=== PATIENT | male | born 1935 | race Caucasian/White ===

== ENCOUNTER 2016-10-16 16:00 | Outpatient (CLI) | payer MEDICARE, OTHER | END 2016-10-16 16:01 | DX: L03.211 Cellulitis of face (principal) ==

== ENCOUNTER 2016-11-27 09:48 | Outpatient (CLI) | payer MEDICARE, OTHER | END 2016-11-27 09:49 | disposition home or self-care (01) | DX: L03.211 Cellulitis of face (principal) ==

== ENCOUNTER 2017-10-10 08:00 | Outpatient (CLI) | payer MEDICARE, OTHER | END 2017-10-10 08:01 | disposition home or self-care (01) | LOC: LAB.N 08:00 | PROVIDERS: ATTEND Urology | DX: R97.20 Elevated prostate specific antigen [PSA] (principal) | CPT/HCPCS: 36415; 84153 ==

== ENCOUNTER 2017-12-04 09:58 | Outpatient (CLI) | payer MEDICARE, OTHER ==
--- NOTE | 2017-12-04 12:03 | MRI Report ---
EXAM: MRI BRAIN WITHOUT CONTRAST EXAM DATE: 12/04/2017 11:21 AM. CLINICAL HISTORY: FOOT DROP, MUSCLE WEAKNESS. COMPARISON: None. TECHNIQUE: Multiplanar, multisequence T1-weighted and fluid-sensitive MR sequences of the brain were performed. Sequences optimized for routine evaluation. Other: None. IV Contrast: None. FINDINGS: Brain Volume: Normal for age. Parenchyma/Dura: No mass, acute infarct or hemorrhage. Scattered T2/FLAIR hyperintense periventricula r and deep white matter lesions within the cerebral hemispheres bilaterally. No parenchymal foci of susceptibility artifact. Ventricles/Cisterns: No hydrocephalus. No abnormal extra-axial fluid collection or hemorrhage. Orbits: Symmetric and unremarkable. Sella Turcica: The pituitary gland, cavernous sinuses, suprasellar cistern and optic chiasm are unrem arkable. IAC: Symmetric and unremarkable. Vasculature: Normal signal flow void is seen in the major arterial structures at the skull base. Sinuses: Mild pansinus mucosal thickening. Bones: No focal pathologic appearing marrow signal changes. Other: None. IMPRESSION: 1. No MRI evidence of acute intracranial abnormality. Specifically, no evidence of acute or subacute infarct, acute intracranial hemorrhage, mass, midline shift, or hydrocephalus. 2. Scattered T2/FLAIR hyperintense periventricular and deep white matter lesions within the cerebral hemispheres bilaterally. These lesions are nonspecific, and can be seen with the entire gamut of whit e matter conditions, including migraine headaches and as sequela of chronic microangiopathy. [facility] Referring Provider Line: [phone] SITE ID: [id number]
== END 2017-12-04 09:59 | disposition home or self-care (01) ==
LOC: DI 09:58
PROVIDERS: ATTEND Family Medicine
DX: M21.379 Foot drop, unspecified foot (principal); M62.81 Muscle weakness (generalized); Q07.8 Other specified congenital malformations of nervous system; G56.12 Other lesions of median nerve, left upper limb
CPT/HCPCS: 70551

== ENCOUNTER 2019-01-25 14:36 | Emergency (ER) | payer MEDICARE, OTHER ==
[2019-01-25 14:47] VITALS: BP 145/78
[2019-01-25] MEDS ORDERED: PROPARACAINE 0.5% OPHTH DROPS 15 ML EACHEYE STA (15:15)
--- NOTE | 2019-01-25 15:37 | ED Physician Documentation ---
PD HPI OPHTHO - Stated complaint Stated Complaint: POSS DEBRIS R EYE - Chief complaint Chief Complaint: Heent - History obtained from History obtained from: Patient - History of Present Illness Timing - onset: How many hours ago (2) Timing - duration: Hours (2) Timing - details: Abrupt onset Pain level max: 2 Pain level now: 1 Location: Right Quality / character: Aching Associated symptoms: Other (states a flying insect hit him in the eye) Contributing factors: Blunt trauma, Wears glasses. No: Wears contacts Similar symptoms before: Has not had sx before Recently seen: Not recently seen Review of Systems Constitutional: denies: Fever Eyes: denies: Decreased vision, Photophobia PD PAST MEDICAL HISTORY - Past Medical History Past Medical History: Yes Cardiovascular: None Respiratory: None GI: None : Benign prostate hypertrophy, Kidney stones HEENT: None Psych: None Musculoskeletal: None Derm: None - Past Surgical History Past Surgical History: Yes Ortho: Hip replacement - Present Medications Home Medications: Ambulatory Orders Medication Instructions Recorded Confirmed Tamsulosin [Flomax] 0.4 mg PO DAILY 09/21/13 08/07/16 - Allergies Allergies/Adverse Reactions: Allergies Allergy/AdvReac Type Severity Reaction Status Date / Time No Known Drug Allergies Allergy Verified 01/25/19 14:42 - Social History Does the pt smoke?: No Smoking Status: Never smoker Does the pt drink ETOH?: Yes Does the pt have substance abuse?: No - Immunizations Immunizations are current?: Yes - POLST Patient has POLST: Yes POLST Status: Full Code PD ED PE NORMAL - Vitals Vital signs reviewed: Yes - General General: Alert and oriented X 3, No acute distress - HEENT HEENT: Moist mucous membranes, Other (Normal examination of the right eye. No conjunctival injection, but there is a small subconjunctival hemorrhage on the medial inferior portion of the eye. No foreign body noted. Normal fluorescein uptake) - Neck Neck: Supple, no meningeal sign - Derm Derm: Warm and dry Results - Vitals Vitals: Vital Signs - 24 hr 01/25/19 14:41 Temperature 36.7 C Heart Rate 91 Respiratory 18 Rate Blood Pressure 145/78 H O2 Saturation 97 Oxygen O2 Source Room air PD MEDICAL DECISION MAKING - ED course Complexity details: considered differential, d/w patient ED course: No foreign body seen. Small subconjunctival hemorrhage. No fluorescein uptake. No corneal abrasion. Patient counseled regarding signs and symptoms for which I believe and urgent re-evaluation would be necessary. Patient with good understanding of and agreement to plan and is comfortable going home at this time This document was made in part using voice recognition software. While efforts are made to proofread this document, sound alike and grammatical errors may occur. Departure - Departure Disposition: 01 Home, Self Care Clinical Impression: Eye foreign body Qualifiers: Encounter type: initial encounter Laterality: right Qualified Code(s): T15.91XA - Foreign body on external eye, part unspecified, right eye, initial encounter Subconjunctival hemorrhage Qualifiers: Laterality: right Qualified Code(s): H11.31 - Conjunctival hemorrhage, right eye Condition: Good Instructions: ED Eye Injury Subconj Hemorrhage Follow-Up: Serafin Morejon MD [Primary Care Provider] - As Needed Comments: Return if you worsen. Follow-up with your doctor as needed for further care. Discharge Date/Time: 01/25/19 16:11
== END 2019-01-25 16:11 | disposition home or self-care (01) ==
LOC: ED 14:36
DX: T15.91XA Foreign body on external eye, part unspecified, right eye, initial encounter (principal); H11.31 Conjunctival hemorrhage, right eye; X58.XXXA Exposure to other specified factors, initial encounter
CPT/HCPCS: 99282; J3490

== ENCOUNTER 2019-08-26 14:01 | Outpatient (CLI) | payer MEDICARE, OTHER | END 2019-08-26 14:02 | disposition critical access hospital (66) | LOC: EMS 14:01 | PROVIDERS: ATTEND Surgery | DX: R10.9 Unspecified abdominal pain (principal); R19.7 Diarrhea, unspecified | CPT/HCPCS: A0425; A0429 ==

== ENCOUNTER 2019-08-26 14:34 | Emergency (ER) | payer MEDICARE, OTHER ==
--- NOTE | 2019-08-26 15:31 | ED Physician Documentation ---
PD HPI ABD PAIN - Stated complaint Stated Complaint: ABD PX - Chief complaint Chief Complaint: Abd Pain - History obtained from History obtained from: Patient, Family, EMS - History of Present Illness Timing - onset: Today (This is a pretty healthy 84-year-old gentleman who developed what sound like a fecal impaction this morning. He feels like there is a lot of pressure in his rectum and cannot have a bowel movement. Has had some little smear like incontinent bowel movements but nothing really productive. Denies abdominal pain. Does feel like he has some urinary retention.) Review of Systems Constitutional: reports: Reviewed and negative Throat: reports: Reviewed and negative Cardiac: reports: Reviewed and negative Respiratory: reports: Reviewed and negative PD PAST MEDICAL HISTORY - Past Medical History Past Medical History: Yes Cardiovascular: None Respiratory: None Neuro: Other GI: None : Benign prostate hypertrophy, Kidney stones HEENT: None Psych: None Musculoskeletal: None Derm: None Other Past Medical History: "nerve difficulties" from [employer] [place] - Past Surgical History Past Surgical History: Yes Ortho: Hip replacement - Present Medications Home Medications: Ambulatory Orders Medication Instructions Recorded Confirmed No Known Home Medications 08/26/19 08/26/19 - Allergies Allergies/Adverse Reactions: Allergies Allergy/AdvReac Type Severity Reaction Status Date / Time No Known Drug Allergies Allergy Verified 08/26/19 14:53 - Social History Does the pt smoke?: No Smoking Status: Never smoker Does the pt drink ETOH?: Yes Does the pt have substance abuse?: No - Immunizations Immunizations are current?: Yes - POLST Patient has POLST: Yes POLST Status: Full Code PD ED PE NORMAL - Vitals Vital signs reviewed: Yes - General General: Alert and oriented X 3, No acute distress - Abdomen Abdomen: Normal bowel sounds, Soft, Non tender - Rectal Rectal: Other (He is popped out some external hemorrhoids, skin raw down there, on internal examination he does have fecal impaction. First enema was placed during exam.) - Back Back: No CVA TTP, No spinal TTP - Extremities Extremities: No edema, No calf tenderness / cord - Neuro Neuro: Alert and oriented X 3, Normal speech Results - Vitals Vitals: Vital Signs - 24 hr 08/26/19 14:36 Temperature 36.6 C Heart Rate 90 Respiratory 18 Rate Blood Pressure 175/85 H O2 Saturation 97 Oxygen O2 Source Room air PD MEDICAL DECISION MAKING - ED course ED course: 84-year-old gentleman presents with a fecal impaction, after an enema he had a large bowel movement and was feeling better. Departure - Departure Disposition: 01 Home, Self Care Clinical Impression: Fecal impaction Condition: Good Record reviewed to determine appropriate education?: Yes Instructions: ED Impaction Fecal Treated Comments: Your blood pressure was elevated today on check into the emergency department. This does not mean that you have hypertension, it is a common phenomenon to come to the emergency department and have elevated blood pressure. I recommend that you see your primary care physician within the week to have it rechecked when you are feeling better.
[2019-08-26] MEDS ORDERED: MAGNESIUM CITRATE 296 ML BOTTLE PO STA (15:57)
[2019-08-26 16:14] VITALS: BP 133/77
== END 2019-08-26 16:31 | disposition home or self-care (01) ==
LOC: EDUNIT# → ED 14:34
DX: K56.41 Fecal impaction (principal); K64.4 Residual hemorrhoidal skin tags; R33.9 Retention of urine, unspecified; R03.0 Elevated blood-pressure reading, without diagnosis of hypertension
CPT/HCPCS: 51798; 99283; A9270

== ENCOUNTER 2019-08-28 11:24 | Emergency (ER) | payer MEDICARE, OTHER ==
[2019-08-28] MEDS ORDERED: MINERAL OIL ENEMA 133 ML BOTTLE RC STA (12:10)
[2019-08-28] MEDS ORDERED: MAGNESIUM CITRATE 296 ML BOTTLE PO STA (12:45)
--- NOTE | 2019-08-28 12:48 | ED Physician Documentation ---
History of Present Illness - Stated complaint Stated Complaint: CONSTIPATION - Chief complaint Chief Complaint: Abd Pain - History obtained from History obtained from: Patient, Family - History of Present Illness Timing: How many days ago (4) Pain level max: 1 Pain level now: 1 - Additonal information Additional information: 84-year-old male presents to the emergency department with constipation for the past 4 days. He was given an enema 2 days ago. He was tried magnesium citrate, but did not take this because he did not want to have diarrhea at home and was afraid he would not be able to make it to the bathroom in time. He states that he still feels constipated so came back for evaluation. No fevers. No vomiting. Review of Systems Constitutional: denies: Fever, Chills Respiratory: denies: Cough GI: denies: Hematemesis, Bloody / black stool : denies: Dysuria Skin: denies: Rash Musculoskeletal: denies: Neck pain, Back pain Neurologic: denies: Headache PD PAST MEDICAL HISTORY - Past Medical History Past Medical History: Yes Cardiovascular: None Respiratory: None Neuro: Other GI: None : Benign prostate hypertrophy, Kidney stones HEENT: None Psych: None Musculoskeletal: None Derm: None - Past Surgical History Past Surgical History: Yes Ortho: Hip replacement - Present Medications Home Medications: Ambulatory Orders Medication Instructions Recorded Confirmed Polyethylene Glycol 3350 [Miralax] 17 gm PO DAILY PRN #1 bottle 08/28/19 - Allergies Allergies/Adverse Reactions: Allergies Allergy/AdvReac Type Severity Reaction Status Date / Time No Known Drug Allergies Allergy Verified 08/26/19 14:53 - Social History Does the pt smoke?: No Smoking Status: Never smoker Does the pt drink ETOH?: Yes Does the pt have substance abuse?: No - Immunizations Immunizations are current?: Yes - POLST Patient has POLST: Yes POLST Status: Full Code PD ED PE NORMAL - Vitals Vital signs reviewed: Yes - General General: Alert and oriented X 3, No acute distress - HEENT HEENT: Moist mucous membranes - Neck Neck: Supple, no meningeal sign - Cardiac Cardiac: RRR, Strong equal pulses - Respiratory Respiratory: No respiratory distress, Clear bilaterally - Abdomen Abdomen: Normal bowel sounds, Soft, Non tender, Non distended - Derm Derm: Warm and dry - Neuro Neuro: Alert and oriented X 3 - Psych Psych: Normal mood, Normal affect Results - Vitals Vitals: Vital Signs - 24 hr 08/28/19 08/28/19 08/28/19 11:29 11:32 14:32 Temperature 36.5 C 36.7 C Heart Rate 96 96 88 Respiratory 18 18 16 Rate Blood Pressure 169/83 H 169/83 H 154/74 H O2 Saturation 99 99 99 Oxygen O2 Source Room air PD MEDICAL DECISION MAKING - ED course Complexity details: re-evaluated patient, considered differential, d/w patient, d/w family ED course: Patient given magnesium citrate and an enema here. Had a good bowel movement. We will place him on MiraLAX for home. No evidence of obstruction or volvulus. Patient is well-appearing, nontoxic. Tolerating p.o. without difficulty. Patient counseled regarding signs and symptoms for which I believe and urgent re-evaluation would be necessary. Patient with good understanding of and agreement to plan and is comfortable going home at this time This document was made in part using voice recognition software. While efforts are made to proofread this document, sound alike and grammatical errors may oc cur. Departure - Departure Disposition: 01 Home, Self Care Clinical Impression: Constipation Qualifiers: Constipation type: unspecified constipation type Qualified Code(s): K59.00 - Constipation, unspecified Condition: Good Instructions: ED Constipation Follow-Up: Serafin Morejon MD [Primary Care Provider] - Within 1 week Prescriptions: Polyethylene Glycol 3350 [Miralax] 17 gm PO DAILY PRN #1 bottle PRN Reason: Constipation Comments: Drink plenty of water at home. Return if you worsen. Especially if you have vomiting. Follow-up with your doctor for further care. Discharge Date/Time: 08/28/19 14:41
[2019-08-28 14:33] VITALS: BP 154/74
== END 2019-08-28 14:41 | disposition home or self-care (01) ==
LOC: ED 11:24
DX: K59.00 Constipation, unspecified (principal)
CPT/HCPCS: 99282; 99284; A9270

== ENCOUNTER 2019-08-31 19:40 | Outpatient (CLI) | payer MEDICARE, OTHER ==
--- NOTE | 2019-08-31 20:18 | Ultrasound Report ---
Reason: HX OF BPH, INCONTINENCE, RETENTION Procedure Date: 08/31/2019 Accession Number: [id number] / [id number] Procedure: US - Bladder CPT Code: Final Report FULL RESULT: EXAM: PELVIS ULTRASOUND, LIMITED EXAM DATE: 08/31/2019 08:03 PM. CLINICAL HISTORY: History of BPH, incontinence, urinary retention. COMPARISON: ABDOMEN/PELVIS W/ 08/07/2016 4:18 AM. TECHNIQUE: Real-time scanning was performed with static images obtained. FINDINGS: The bladder is markedly distended with anechoic fluid measuring 15.7 x 13.1 x 14.2 cm (1520 cc). The bladder was also moderately distended on prior CT. No wall thickening, mass or debris evident. No calculi visualized. Patient was unable to void during this exam. The kidneys were not imaged on this limited study. The prostate gland measures 5.8 x 4.7 cm, moderately enlarged. IMPRESSION: Markedly distended bladder and moderately enlarged prostate gland may represent a high-grade bladder outlet obstruction. Patient was unable to void during this exam. It was suggested to the patient that visiting the emergency room following the exam for decompression may be helpful. [facility]
== END 2019-08-31 19:41 | disposition home or self-care (01) ==
LOC: DI 19:40
PROVIDERS: ATTEND Family Medicine
DX: N40.1 Benign prostatic hyperplasia with lower urinary tract symptoms (principal); N39.3 Stress incontinence (female) (male); N32.89 Other specified disorders of bladder
CPT/HCPCS: 76857

== ENCOUNTER 2019-08-31 20:19 | Emergency (ER) | payer MEDICARE, OTHER ==
[2019-08-31] MEDS ORDERED: TAMSULOSIN 0.4 MG CAPSULE PO STA (21:50)
[2019-08-31] MEDS ORDERED: LIDOCAINE 2% URO-JET 5 ML SYRINGE UR STA (21:50)
--- NOTE | 2019-08-31 21:51 | ED Physician Documentation ---
History of Present Illness - Stated complaint Stated Complaint: MALE - Chief complaint Chief Complaint: General - History obtained from History obtained from: Patient - History of Present Illness Timing: Today (4-year-old gentleman who we have seen recently for fecal impaction. He had a TURP 3 years ago, not currently on Flomax. After the disimpaction he subsequently still had some trouble with on and off bowel movements but also with urinary dribbling, and was seen by his primary care physician. No urine was obtained but he was put on antibiotics "just in case." And sent for an ultrasound. He was referred here from ultrasound because of prostatic hypertrophy and 152 0 mL in the bladder.) Review of Systems Constitutional: denies: Fever, Chills Respiratory: denies: Dyspnea, Cough GI: denies: Abdominal Pain, Nausea, Vomiting PD PAST MEDICAL HISTORY - Past Medical History Cardiovascular: None Respiratory: None Neuro: Other GI: None : Benign prostate hypertrophy, Retention, Incontinence HEENT: None Psych: None Musculoskeletal: None Derm: None - Past Surgical History Past Surgical History: Yes Ortho: Hip replacement - Present Medications Home Medications: Ambulatory Orders Medication Instructions Recorded Confirmed Polyethylene Glycol 3350 [Miralax] 17 gm PO DAILY PRN #1 bottle 08/28/19 Tamsulosin [Flomax] 0.4 mg PO DAILY #30 capsule 08/31/19 - Allergies Allergies/Adverse Reactions: Allergies Allergy/AdvReac Type Severity Reaction Status Date / Time No Known Drug Allergies Allergy Verified 08/26/19 14:53 - Social History Does the pt smoke?: No Smoking Status: Never smoker Does the pt drink ETOH?: Yes Does the pt have substance abuse?: No - Immunizations Immunizations are current?: Yes - POLST Patient has POLST: Yes POLST Status: Full Code PD ED PE NORMAL - Vitals Vital signs reviewed: Yes - General General: Alert and oriented X 3, No acute distress - Respiratory Respiratory: No respiratory distress - Abdomen Abdomen: Normal bowel sounds, Soft, Non tender - Extremities Extremities: No edema, No calf tenderness / cord - Neuro Neuro: Alert and oriented X 3, Normal speech Results - Vitals Vitals: Vital Signs - 24 hr 08/31/19 20:26 Temperature 36.9 C Heart Rate 97 Respiratory 18 Rate Blood Pressure 149/66 H O2 Saturation 98 Oxygen O2 Source Room air - Labs Labs: Laboratory Tests 08/31/19 08/31/19 23:03 23:03 WBC 12.3 H RBC 4.78 Hgb 14.4 Hct 43.1 MCV 90.2 MCH 30.1 MCHC 33.4 RDW 13.1 Plt Count 214 MPV 11.0 Neut # (Auto) 10.3 H Lymph # (Auto) 0.9 L [place] # (Auto) 0.9 Eos # (Auto) 0.1 Baso # (Auto) 0.0 Absolute Nucleated RBC 0.00 Nucleated RBC % 0.0 Sodium 139 Potassium 4.0 Chloride 102 Carbon Dioxide 28 Anion Gap 9.0 BUN 15 Creatinine 0.9 Estimated GFR (MDRD) 81 L Glucose 117 H Calcium 10.0 - Rads (name of study) 1v abd Radiology: EMP read contemporaneously (no excessive stool) Procedures - General procedure General procedure: I tried several times to place a Wilson this was after the nurse tried and failed. I tried both with a coud and a regular catheter. I was unsuccessful. PD MEDICAL DECISION MAKING - ED course ED course: 84-year-old gentleman with history of prostatic hypertrophy, several years out from a TURP procedure presents with urinary retention as an outpatient, 1520 mL in the bladder, that said he is in no distress and really has no sensation of an acute urinary. I and the nurse tried and failed to place a Wilson. He was given Flomax. At shift change I had spoken with Dr. Smith on-call for Dr. Santana who felt that this was likely a chronic phenomenon given the lack of distress or pain and could be dealt with as an outpatient. I asked Dr. Marte to follow-up on his x-ray and blood work. If they are normal he can be discharged on Flomax which I will write for to call Dr. Santana in 2 days. Departure - Departure Disposition: 01 Home, Self Care Clinical Impression: Urinary retention with incomplete bladder emptying Condition: Good Record reviewed to determine appropriate education?: Yes Follow-Up: Monique Way MD [Physician No Access] - Prescriptions: Tamsulosin [Flomax] 0.4 mg PO DAILY #30 capsule Comments: The [facility] number for the urology office is [phone]. Return for new or worsening symptoms.
[2019-08-31 23:07] LABS: BASOPHILS % (AUTO) 0.3 %; EOSINOPHILS # (AUTO) 0.1 10^3/uL (0.0-0.7); EOSINOPHILS % (AUTO) 1.1 %; HGB - HEMOGLOBIN 14.4 g/dL (14.0-18.0); LYMPHOCYTES # (AUTO) 0.9 10^3/uL (1.5-3.5); LYMPHOCYTES % (AUTO) 7.2 %; MEAN CORPUSCULAR HEMOGLOBIN 30.1 pg (27.0-31.0); MEAN CORPUSCULAR HGB CONC 33.4 g/dL (32.0-36.0); MEAN CORPUSCULAR VOLUME 90.2 fL (80.0-94.0); MONOCYTES # (AUTO) 0.9 10^3/uL (0.0-1.0); NEUTROPHILS # (AUTO) 10.3 10^3/uL (1.5-6.6); PLT - PLATELET COUNT 214 10^3/uL (130-450); RED BLOOD COUNT 4.78 10^6/uL (4.70-6.10); RED CELL DISTRIBUTION WIDTH 13.1 % (12.0-15.0); WHITE BLOOD COUNT 12.3 x10^3/uL (4.8-10.8)
--- NOTE | 2019-08-31 23:07 | XRAY Report ---
Reason: constipation Procedure Date: 08/31/2019 Accession Number: [id number] / [id number] Procedure: XR - Abdomen 1 View X-Ray CPT Code: 88745 Final Report FULL RESULT: EXAM: ABDOMEN RADIOGRAPHY EXAM DATE: 08/31/2019 10:45 PM. CLINICAL HISTORY: Constipation. COMPARISON: ABDOMEN/PELVIS W/ 08/07/2016 4:18 AM. TECHNIQUE: 1 view. FINDINGS: Bowel Gas Pattern: Within normal limits. No dilated loops. Other: Previous right hip replacement. IMPRESSION: Negative 1-view abdomen x-ray. No excessive stool burden seen by plain film. [facility]
[2019-08-31 23:16] LABS: CREATININE 0.9 mg/dL (0.6-1.2)
[2019-08-31 23:56] VITALS: BP 144/72
== END 2019-08-31 23:54 | disposition home or self-care (01) ==
LOC: ED 20:19
DX: N40.1 Benign prostatic hyperplasia with lower urinary tract symptoms (principal); R33.8 Other retention of urine; R39.14 Feeling of incomplete bladder emptying; N39.3 Stress incontinence (female) (male); N32.89 Other specified disorders of bladder
CPT/HCPCS: 36415; 51702; 74018; 76857; 80048; 85025; 99283; A9270

== ENCOUNTER 2020-08-22 12:51 | Outpatient (CLI) | payer MEDICARE, OTHER ==
--- NOTE | 2020-08-22 13:30 | XRAY Report ---
PROCEDURE: Wrist 3 View RT INDICATIONS: RIGHT WRIST PAIN TECHNIQUE: 3 views of the wrist were acquired. COMPARISON: None FINDINGS: Bones: There is a comminuted fracture with impaction as well as intra-articular extension of the dist al radius. There is mild dorsal angulation. Mildly displaced ulna styloid fracture is present. No philipp picious bony lesions. Soft tissues: No suspicious soft tissue calcifications. IMPRESSION: Comminuted distal radial intra-articular fracture. In addition, ulnar styloid fracture is present. Reviewed by: Josefina Cardozo MD on 08/22/2020 1:29 PM [facility] Approved by: Josefina Cardozo MD on 08/22/2020 1:29 PM PST Station ID: [id number]
--- NOTE | 2020-08-22 16:13 | XRAY Report ---
PROCEDURE: Ankle 3 View LT INDICATIONS: LEFT ANKLE PAIN AFTER FALL TECHNIQUE: 3 views of the ankle were acquired. COMPARISON: None FINDINGS: Bones: No fractures or dislocations. Ankle mortise is normally aligned. No suspicious bony lesions . Soft tissues: No tibiotalar joint effusion. Achilles tendon appears normal. IMPRESSION: No visualized acute fracture or dislocation. However, occult injury cannot be excluded. Recommend short interval imaging follow-up in 7-10 days as clinically indicated for additional evalua tion. Reviewed by: Josefina Cardozo MD on 08/22/2020 4:12 PM [facility] Approved by: Josefina Cardozo MD on 08/22/2020 4:12 PM [facility] Station ID: [id number]
== END 2020-08-22 12:52 | disposition home or self-care (01) ==
LOC: DI.N 12:51
DX: S52.571A Other intraarticular fracture of lower end of right radius, initial encounter for closed fracture (principal); S52.611A Displaced fracture of right ulna styloid process, initial encounter for closed fracture; M25.572 Pain in left ankle and joints of left foot

== ENCOUNTER 2020-10-02 14:50 | Outpatient (CLI) | payer MEDICARE, OTHER ==
--- NOTE | 2020-10-02 12:26 | XRAY Report ---
PROCEDURE: Wrist 3 View RT INDICATIONS: COLLES FX OF R RAD[facility] TECHNIQUE: 3 views of the wrist were acquired. COMPARISON: Acute trauma plain films 08/22/2020 right wrist. FINDINGS: Bones: No new fractures or dislocations. No suspicious bony lesions. Scaphoid view: Not obtained. Soft tissues: No suspicious soft tissue calcifications. IMPRESSION: No change in the degree of malalignment and dorsal angulation with impaction at the distal radius and ulna fractures. Blurring of fracture margins, osseous union appears developing. Reviewed by: Edwar Barnard MD on 10/02/2020 12:25 PM PST Approved by: Edwar Barnard MD on 10/02/2020 12:25 PM PST Station ID: [id number]
== END 2020-10-02 23:59 | disposition home or self-care (01) ==
LOC: DI.N 14:50
PROVIDERS: ATTEND Orthopaedic Surgery
DX: S52.501D Unspecified fracture of the lower end of right radius, subsequent encounter for closed fracture with routine healing (principal); S52.601D Unspecified fracture of lower end of right ulna, subsequent encounter for closed fracture with routine healing

== ENCOUNTER 2021-04-23 13:38 | Emergency (ER) | payer MEDICARE, OTHER ==
[2021-04-23 14:13] VITALS: BP 183/96
[2021-04-23 14:30] LABS: BASOPHILS % (AUTO) 0.3 %; EOSINOPHILS % (AUTO) 0.1 %; HCT - HEMATOCRIT 46.5 % (42.0-52.0); LYMPHOCYTES # (AUTO) 0.5 10^3/uL (1.5-3.5); LYMPHOCYTES % (AUTO) 4.6 %; MEAN CORPUSCULAR HEMOGLOBIN 30.5 pg (27.0-31.0); MEAN CORPUSCULAR HGB CONC 34.4 g/dL (32.0-36.0); MEAN CORPUSCULAR VOLUME 88.7 fL (80.0-94.0); MEAN PLATELET VOLUME 10.5 fL (7.4-11.4); MONOCYTES # (AUTO) 0.3 10^3/uL (0.0-1.0); NEUTROPHILS # (AUTO) 8.9 10^3/uL (1.5-6.6); NEUTROPHILS % (AUTO) 91.8 %; PLT - PLATELET COUNT 223 10^3/uL (130-450); RED BLOOD COUNT 5.24 10^6/uL (4.70-6.10); RED CELL DISTRIBUTION WIDTH 12.8 % (12.0-15.0); WHITE BLOOD COUNT 9.7 x10^3/uL (4.8-10.8)
[2021-04-23 14:46] LABS: ALBUMIN 4.8 g/dL (3.2-5.5); ALBUMIN/GLOBULIN RATIO 1.7 (1.0-2.2); BILIRUBIN,TOTAL 0.9 mg/dL (0.2-1.0); CALCIUM 10.9 mg/dL (8.5-10.3); POTASSIUM 4.4 mmol/L (3.5-5.0); TOTAL PROTEIN 7.7 g/dL (6.7-8.2)
--- NOTE | 2021-04-23 15:11 | ED Physician Documentation ---
PD HPI ABD PAIN - Stated complaint Stated Complaint: MALE - Chief complaint Chief Complaint: Abd Pain - History obtained from History obtained from: Patient - Additional information Additional information: He was working heavily in the yard yesterday, pitch working heavy loads of branches. Overnight developed a "gut ache." And went to the walk-in clinic and was sent here for I presume imaging. Denies changes in bowel movements or nausea. Review of Systems Ten Systems: 10 systems reviewed and negative Eyes: reports: Reviewed and negative Ears: reports: Reviewed and negative Nose: reports: Reviewed and negative Throat: reports: Reviewed and negative Cardiac: reports: Reviewed and negative PD PAST MEDICAL HISTORY - Past Medical History Cardiovascular: None Respiratory: None Neuro: Other GI: None : Benign prostate hypertrophy, Retention, Incontinence HEENT: None Psych: None Musculoskeletal: None Derm: None - Past Surgical History Past Surgical History: Yes Ortho: Hip replacement - Present Medications Home Medications: Ambulatory Orders Medication Instructions Recorded Confirmed polyethylene glycoL 3350 [Miralax] 17 gm PO DAILY PRN #1 bottle 08/28/19 Tamsulosin [Flomax] 0.4 mg PO DAILY #30 capsule 08/31/19 04/23/21 Finasteride [Proscar] 1 tab PO DAILY 04/23/21 04/23/21 HYDROcod/ACETAM 5/325 [[place] 5/325] 1 - 2 tab PO Q6H PRN #20 tablet 04/23/21 - Allergies Allergies/Adverse Reactions: Allergies Allergy/AdvReac Type Severity Reaction Status Date / Time No Known Drug Allergies Allergy Verified 04/23/21 14:13 - Social History Does the pt smoke?: No Smoking Status: Never smoker Does the pt drink ETOH?: Yes Does the pt have substance abuse?: No - Immunizations Immunizations are current?: Yes - POLST Patient has POLST: Yes POLST Status: Full Code PD ED PE NORMAL - Vitals Vital signs reviewed: Yes - General General: Alert and oriented X 3 (Mild memory deficits), No acute distress - HEENT HEENT: PERRL, EOMI - Neck Neck: Supple, no meningeal sign, No bony TTP - Cardiac Cardiac: RRR, No murmur - Respiratory Respiratory: No respiratory distress, Clear bilaterally - Abdomen Abdomen: Other (There is a potential right inguinal hernia defect, that said it is not incarcerated or tender. There is no bowel in it. Mild lower abdominal tenderness that is difficult to localize. No surgical signs.) - Back Back: No CVA TTP, No spinal TTP - Derm Derm: Normal color - Extremities Extremities: No edema, No calf tenderness / cord Results - Vitals Vitals: Vital Signs - 24 hr 04/23/21 04/23/21 13:56 14:10 Temperature 36.4 C L 36.4 C L Heart Rate 92 93 Respiratory 18 16 Rate Blood Pressure 186/97 H 183/96 H O2 Saturation 99 100 Oxygen O2 Source Room air - Labs Labs: Laboratory Tests 04/23/21 04/23/21 04/23/21 14:25 14:25 16:12 WBC 9.7 RBC 5.24 Hgb 16.0 Hct 46.5 MCV 88.7 MCH 30.5 MCHC 34.4 RDW 12.8 Plt Count 223 MPV 10.5 Neut # (Auto) 8.9 H Lymph # (Auto) 0.5 L [place] # (Auto) 0.3 Eos # (Auto) 0.0 Baso # (Auto) 0.0 Absolute Nucleated RBC 0.00 Nucleated RBC % 0.0 Sodium 142 Potassium 4.4 Chloride 105 Carbon Dioxide 28 Anion Gap 9.0 BUN 17 Creatinine 1.0 Estimated GFR (MDRD) 71 L Glucose 135 H Calcium 10.9 H Total Bilirubin 0.9 AST 18 ALT 18 Alkaline Phosphatase 74 Total Protein 7.7 Albumin 4.8 Globulin 2.9 Albumin/Globulin Ratio 1.7 Lipase 28 Urine Color YELLOW Urine Clarity CLEAR Urine pH 6.0 Ur Specific [place] 1.025 Urine Protein NEGATIVE Urine Glucose (UA) NEGATIVE Urine Ketones 40 H Urine Occult Blood MODERATE H Urine Nitrite NEGATIVE Urine Bilirubin NEGATIVE Urine Urobilinogen 0.2 (NORMAL) Ur Leukocyte Esterase NEGATIVE Urine RBC 6-10 H Urine WBC 0-3 Ur Squamous Epith Cells FEW Squamous Urine Bacteria Rare Urine Casts 0-2 Hyaline Casts Urine Mucus Few Strands Ur Microscopic Review INDICATED Urine Culture Comments NOT INDICATED - Rads (name of study) CT A/P Radiology: EMP read contemporaneously PD MEDICAL DECISION MAKING - ED course ED course: 86-year-old gentleman had severe abdominal pain this morning, less now. Work-up demonstrates a 5 mm UPJ stone, he is already on Flomax and is encouraged to continue this and they are actually seeing his urologist this week. He is given a CD of the CAT scan. He did not require any pain medication here. I am prescribing a short course of short-acting opioid pain medication for this patient. I have reviewed the patients [employer] and no concerning findings were noted. I have discussed that the opioids are for short term therapy only, and will not be refilled from the ED. Departure - Departure Disposition: Home, Self Care Clinical Impression: Renal colic Condition: Good Record reviewed to determine appropriate education?: Yes Instructions: ED Stone Renal W Colic Prescriptions: HYDROcod/ACETAM 5/325 [[place] 5/325] 1 - 2 tab PO Q6H PRN #20 tablet PRN Reason: Pain Comments: Follow-up with your urologist this Friday as scheduled, take the copy of the CAT scan on CD with you. He has a 5 mm kidney stone which may pass on its own, but there is also a possibility that it may need to be removed. I sent the prescription electronically to [facility] in [place]. Return for new or worsening symptoms or if pain is uncontrolled. I am prescribing a short course of narcotic pain medication for you. These are potentially dangerous and addictive medications that should be used carefully. These medications may constipate you. Take an [id number] stool softener (docusate) twice daily with plenty of water while taking these medications. If you go 24 hours without a bowel movement, take [id number] miralax, per package instructions. Do not drink or drive while taking these medications. If you received narcotic or sedating medications while in the emergency department, do not drive for 24 hours. Store this medication in a safe, secure place and out of reach of children. It is a violation of federal law to give or sell this medication to another person or to use in a manner other than prescribed. The ED will not refill narcotic prescriptions, including prescriptions lost or stolen. To dispose of unwanted medications: 1. [facility] at [address] in [place] has a medication drop box. They accept prescription medications (in pill form) Friday through Friday 9:00 a.m. to 5:00 p.m. 2. The [facility] [employer] accepts prescription medications (in pill form only) for disposal year round. Call for more information. 3. Contact the [facility] for the next [facility] sponsored prescription drug collection event. , [phone], or [phone]; Note that many narcotic pain relievers also contain Tylenol/acetaminophen. Please ensure that your total dose of acetaminophen from all sources does not exceed 3 g (3000 mg) per day.
[2021-04-23] MEDS ORDERED: IOPAMIDOL-300 50 ML VIAL ONE (15:44)
[2021-04-23 16:33] LABS: BILIRUBIN,URINE NEGATIVE (NEGATIVE); GLUCOSE, URINE (UA) NEGATIVE (NEGATIVE); KETONES,URINE (UA) 40 mg/dL (NEGATIVE); LEUKOCYTE ESTERASE, URINE NEGATIVE (NEGATIVE); NITRITE,URINE NEGATIVE (NEGATIVE); OCCULT BLOOD,URINE MODERATE (NEGATIVE); PROTEIN,URINE NEGATIVE (NEGATIVE); UROBILINOGEN,URINE 0.2 (NORMAL) E.U./dL (NORMAL)
[2021-04-23 16:34] LABS: CLARITY,URINE CLEAR (CLEAR)
[2021-04-23 16:40] LABS: BACTERIA,URINE Rare /HPF (None Seen); SQUAMOUS EPITHELIAL CELL,UR FEW Squamous (<= Few); WBC,URINE 0-3 /HPF (0-3)
[2021-04-23 16:41] LABS: CASTS, URINE 0-2 Hyaline Casts /LPF; MUCUS,URINE Few Strands
--- NOTE | 2021-04-23 16:58 | CT Report ---
PROCEDURE: Abdomen/Pelvis W INDICATIONS: IV only, low abd pain CONTRAST: IV CONTRAST: Isovue 300 ml: 100 PO CONTRAST: *NO PO CONTRAST TECHNIQUE: After the administration of contrast, 5 mm thick sections acquired from the diaphragms to the sym physis. 5 mm thick coronal and sagittal reformats were acquired. For radiation dose reduction, the following was used: automated exposure control, adjustment of mA and/or kV according to patient size . COMPARISON: None. FINDINGS: Image quality: Excellent. ABDOMEN: Lung bases: Lung bases are clear. Heart size is normal. Solid organs: Liver and spleen are normal in size and enhancement. Gallbladder Biliary system is non dilated. Pancreas enhances normally. No adrenal nodules. Kidneys demonstrate normal size an d enhancement, without right-sided hydronephrosis but there is hydronephrosis on the left associated with a ureteropelvic junction calculus measuring 5 mm and 850 Hounsfield units. This is best seen maurilio tered on CT series 3 image 46. . There is an exophytic upper pole simple water density right renal co rtical cyst that measures up to 6.7 cm. Peritoneum and bowel: Bowel loops demonstrate normal wall thickness and caliber. No free fluid or a ir. Nodes and vessels: No retroperitoneal or mesenteric adenopathy by size criteria. Aorta and inferior vena cava are normal in size. Miscellaneous: No ventral hernias. PELVIS: Genitourinary: Bladder wall thickness is normal. Miscellaneous: No inguinal hernias or adenopathy. No evidence of diverticulitis or other inflammato ry process within the abdomen or pelvis. Bones: No suspicious bony lesions. No vertebral body compression fractures. IMPRESSION: 5 mm ureteropelvic junction calculus impacted at the left urinary tract, producing moder ate hydronephrosis on the left. No diverticulitis or other inflammatory process involving the abdomen or pelvis. Reviewed by: Edwar Barnard MD on 04/23/2021 4:57 PM PDT Approved by: Edwar Barnard MD on 04/23/2021 4:57 PM PDT Station ID: [id number]
[2021-04-23] MEDS ORDERED: IOPAMIDOL-300 50 ML VIAL IVP ONE (19:02)
== END 2021-04-23 17:34 | disposition home or self-care (01) ==
LOC: ED 13:38
DX: N13.2 Hydronephrosis with renal and ureteral calculous obstruction (principal)
CPT/HCPCS: 36415; 74177; 80053; 81001; 83690; 85025; 99284; Q9967; 81003; 87086

== ENCOUNTER 2021-05-02 13:08 | Outpatient (CLI) | payer MEDICARE, OTHER | END 2021-05-02 13:09 | disposition home or self-care (01) | LOC: COV 13:08 | PROVIDERS: ATTEND Urology | DX: Z01.812 Encounter for preprocedural laboratory examination (principal); R33.9 Retention of urine, unspecified; Z20.822 Contact with and (suspected) exposure to COVID-19 ==

== ENCOUNTER 2022-06-29 11:54 | Emergency (ER) | payer MEDICARE, OTHER ==
[2022-06-29 12:00] VITALS: BP 157/118
--- NOTE | 2022-06-29 12:06 | ED Physician Documentation ---
History of Present Illness - Stated complaint Stated Complaint: ABD PX - Chief complaint Chief Complaint: Abd Pain - Additonal information Additional information: This very pleasant 87-year-old male comes to the emergency department for eval uation of lower abdominal pain that began this morning after eating breakfast. Some nausea but no vomiting. He went to a local walk-in clinic and they had concern for possible acute appendicitis thus he was transferred here via EMS. Patient has no pertinent past surgical history. 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 He is denying any chest pain or shortness of air. Not anticoagulated. In general appears well. Review of Systems Constitutional: denies: Fever, Chills Eyes: reports: Reviewed and negative Throat: reports: Reviewed and negative Cardiac: reports: Reviewed and negative Respiratory: reports: Reviewed and negative GI: reports: Abdominal Pain, Nausea. denies: Vomiting, Constipation, Diarrhea, Hematemesis : reports: Reviewed and negative Skin: reports: Reviewed and negative PD PAST MEDICAL HISTORY - Past Medical History Cardiovascular: None Respiratory: None Neuro: Other GI: None : Benign prostate hypertrophy, Retention, Incontinence HEENT: None Psych: None Musculoskeletal: None Derm: None - Past Surgical History Past Surgical History: Yes Ortho: Hip replacement - Present Medications Home Medications: Ambulatory Orders Medication Instructions Recorded Confirmed polyethylene glycoL 3350 [Miralax] 17 gm PO DAILY PRN #1 bottle 08/28/19 Tamsulosin [Flomax] 0.4 mg PO DAILY #30 capsule 08/31/19 04/23/21 Finasteride [Proscar] 1 tab PO DAILY 04/23/21 04/23/21 HYDROcod/ACETAM 5/325 [[place] 5/325] 1 - 2 tab PO Q6H PRN #20 tablet 04/23/21 - Allergies Allergies/Adverse Reactions: Allergies Allergy/AdvReac Type Severity Reaction Status Date / Time No Known Drug Allergies Allergy Verified 04/23/21 14:13 - Social History Does the pt smoke?: No Smoking Status: Never smoker Does the pt drink ETOH?: Yes Does the pt have substance abuse?: No - Immunizations Immunizations are current?: Yes - POLST Patient has POLST: Yes POLST Status: Full Code PD ED PE NORMAL - General General: Alert and oriented X 3, No acute distress, Well developed/nourished - HEENT HEENT: Atraumatic, Moist mucous membranes - Neck Neck: Supple, no meningeal sign, No adenopathy - Cardiac Cardiac: RRR, No murmur - Respiratory Respiratory: No respiratory distress, Clear bilaterally - Abdomen Abdomen: Normal bowel sounds, Soft. No: Non tender (Mild nonfocal lower abdominal tenderness without guarding or rebound. Negative McBurney's. 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 Eye Opening: Spontaneous Motor: Obeys Commands Verbal: Oriented GCS Score: 15 Results - Vitals Vitals: Vital Signs - 24 hr 06/29/22 11:59 Temperature 37.0 C Heart Rate 66 Respiratory 18 Rate Blood Pressure 157/118 H O2 Saturation 99 Oxygen O2 Source Room air - Labs Labs: Laboratory Tests 06/29/22 06/29/22 06/29/22 12:11 12:26 12:50 WBC 9.2 RBC 5.54 Hgb 16.3 Hct 49.2 MCV 88.8 MCH 29.4 MCHC 33.1 RDW 13.2 Plt Count 206 MPV 11.2 Neut # (Auto) 8.2 H Lymph # (Auto) 0.6 L [place] # (Auto) 0.4 Eos # (Auto) 0.0 Baso # (Auto) 0.0 Absolute Nucleated RBC 0.00 Nucleated RBC % 0.0 Sodium 140 Potassium 3.8 Chloride 105 Carbon Dioxide 26 Anion Gap 9.0 BUN 14 Creatinine 0.9 Estimated GFR (MDRD) 80 L Glucose 108 H Calcium 10.4 H Total Bilirubin 0.7 AST 15 ALT 13 Alkaline Phosphatase 79 Total Protein 7.0 Albumin 4.4 Globulin 2.6 Albumin/Globulin Ratio 1.7 Lipase 30 Urine Color YELLOW Urine Clarity CLEAR Urine pH 6.0 Ur Specific [place] 1.025 Urine Protein TRACE Urine Glucose (UA) NEGATIVE Urine Ketones 15 H Urine Occult Blood LARGE H Urine Nitrite NEGATIVE Urine Bilirubin NEGATIVE Urine Urobilinogen 0.2 (NORMAL) Ur Leukocyte Esterase NEGATIVE Urine RBC TNTC H Urine WBC 0-3 Ur Squamous Epith Cells FEW Squamous Urine Bacteria Few Ur Microscopic Review INDICATED Urine Culture Comments NOT INDICATED - Rads (name of study) Ct abd Radiology: Final report received (Moderate Right hydronephrosis. Obstructing calculus in the mid right ureter measuring 0.6 cm. Additional nonobstructing kidney stones bilaterally) PD MEDICAL DECISION MAKING - ED course Complexity details: reviewed results, re-evaluated patient, considered differential, d/w patient, d/w family ED course: Well-appearing 87-year-old male was brought to the emergency department for evaluation of acute onset right mid and lower quadrant abdominal pain that began this morning. He does have a history of renal colic and has had lithotripsy on the left side in the past with Dr. Payton urologist through [facility]. On presentation to the emergency department he is alert and well-appearing. Much of the history is provided through the patient's as the patient does have some early dementia. His abdominal exam had some mild right-sided tenderness but nonfocal peritoneal. Subsequent CBC showed no leukocytosis and a healthy hemoglobin. His renal function is preserved. Urinalysis shows large amount of RBCs but no secondary findings to suggest infection. CT scan was obtained and it does show a mid right ureter stone with some associated hydronephrosis. Patient is currently on Flomax twice daily. 9 I discussed the findings with the patient and his at the bedside. They do have good follow-up with urology at scheduled clinic. Given preserved renal function, lack of urinary tract infection findings and well-controlled symptoms no indication for emergent transfer however they will follow closely with their urologist. Otherwise emergent return precautions were discussed for worsening symptoms I briefly discussed the case with on-call urologist Dr. Mack through [facility]. He would not recommend any new medications or changes to the current plan which includes follow-up soon as possible with Dr. Payton this week. Otherwise emergent return precautions were discussed with patient and her . Departure - Departure Disposition: 01 Home, Self Care Clinical Impression: Right ureteral stone, Hydronephrosis of right kidney Condition: Stable Record reviewed to determine appropriate education?: Yes Instructions: Hydronephrosis Ch Follow-Up: Zan Payton MD [Physician No Access] - Comments: Roberth was seen today in the emergency department because he began having pain on the right side of his abdomen this morning. Here in the emergency department a CBC and electrolytes did not show any worrisome findings. His kidney function is normal. He does not have an elevated white count. His urine also shows no findings to suggest infection though there is a fair amount of blood in it. We did obtain a CT scan of his abdomen. He has an approximate 6 mm right ureter stone that is causing some hydronephrosis or swelling of the kidney behind it. He should continue to take the Flomax twice daily as already prescribed. He can remain on the finasteride for his prostate. However it is critical that he follow-up with his urologist this upcoming week. Given the size of the stone it is possible that he may require lithotripsy or alternative ways to manage the stone. Return to the emergency department if his symptoms are worsening in any way, he has uncontrolled vomiting, pain or fevers.
[2022-06-29 12:34] LABS: BASOPHILS % (AUTO) 0.3 %; EOSINOPHILS % (AUTO) 0.1 %; HCT - HEMATOCRIT 49.2 % (42.0-52.0); HGB - HEMOGLOBIN 16.3 g/dL (14.0-18.0); LYMPHOCYTES # (AUTO) 0.6 10^3/uL (1.5-3.5); MEAN CORPUSCULAR HEMOGLOBIN 29.4 pg (27.0-31.0); MEAN CORPUSCULAR HGB CONC 33.1 g/dL (32.0-36.0); MEAN CORPUSCULAR VOLUME 88.8 fL (80.0-94.0); MEAN PLATELET VOLUME 11.2 fL (7.4-11.4); MONOCYTES # (AUTO) 0.4 10^3/uL (0.0-1.0); MONOCYTES % (AUTO) 3.9 %; NEUTROPHILS # (AUTO) 8.2 10^3/uL (1.5-6.6); NEUTROPHILS % (AUTO) 89.4 %; PLT - PLATELET COUNT 206 10^3/uL (130-450); RED BLOOD COUNT 5.54 10^6/uL (4.70-6.10); RED CELL DISTRIBUTION WIDTH 13.2 % (12.0-15.0); WHITE BLOOD COUNT 9.2 x10^3/uL (4.8-10.8)
[2022-06-29 12:42] LABS: BILIRUBIN,URINE NEGATIVE (NEGATIVE); GLUCOSE, URINE (UA) NEGATIVE (NEGATIVE); KETONES,URINE (UA) 15 mg/dL (NEGATIVE); LEUKOCYTE ESTERASE, URINE NEGATIVE (NEGATIVE); NITRITE,URINE NEGATIVE (NEGATIVE); OCCULT BLOOD,URINE LARGE (NEGATIVE); PROTEIN,URINE TRACE mg/dL (NEGATIVE); UROBILINOGEN,URINE 0.2 (NORMAL) E.U./dL (NORMAL)
[2022-06-29 12:43] LABS: CLARITY,URINE CLEAR (CLEAR)
--- NOTE | 2022-06-29 12:51 | CT Report ---
PROCEDURE: ABDOMEN/PELVIS WO INDICATIONS: lower abdominal pain R>L TECHNIQUE: Noncontrast 5 mm thick sections acquired from the diaphragms to the symphysis. 5 mm coronal and sagi ttal reformats were then performed. For radiation dose reduction, the following was used: automated exposure control, adjustment of mA and/or kV according to patient size. COMPARISON: CT abdomen and pelvis 04/23/2021, 08/07/2016. FINDINGS: Image quality: Excellent. Evaluation of the solid parenchymal organs is limited without IV contrast. ABDOMEN: Lung bases: Lung bases are clear. Mild basilar scarring or atelectasis. Heart size is normal. Solid organs: Liver and spleen are normal in size. Hypodensity in the left lobe of the liver is unc hanged since 2016 and likely represents a benign cyst. Gallbladder is unremarkable. Pancreas is atro phic. No adrenal nodules. Moderate right hydronephrosis. Obstructing calculus at the mid right ureter measuring 0.6 cm, (3/54). Right perinephric stranding. Additional small nonobstructing right kidney stones. Large right simple cyst measuring 7.5 cm. No convincing no left hydronephrosis. Large left peripelvic cyst measuring 5. 7 cm is again seen. Several small nonobstructing left kidney stones. Peritoneum and bowel: Unenhanced bowel loops demonstrate normal wall thickness and caliber. Divertic ulosis. The appendix is not dilated. No free fluid or air. Nodes and vessels: No retroperitoneal or mesenteric adenopathy by size criteria. Aorta and inferior vena cava are normal in caliber. Circumferential calcified atherosclerotic plaque. Miscellaneous: Small umbilical hernia. PELVIS: Genitourinary: Bladder is mostly decompressed. No stone. Miscellaneous: Probable small fat-containing inguinal hernias. No adenopathy. Bones: No suspicious bony lesions. Right hip arthroplasty. No vertebral body compression fractures. IMPRESSION: 1. Moderate right hydronephrosis. Obstructing calculus in the mid right ureter measuring 0.6 cm. 2. Additional nonobstructing kidney stones bilaterally. Reviewed by: Denis Cheek MD on 06/29/2022 11:50 AM AGUS Approved by: Denis Cheek MD on 06/29/2022 11:50 AM AGUS Station ID: [id number]
[2022-06-29 12:54] LABS: RBC,URINE TNTC /HPF (0-5); SQUAMOUS EPITHELIAL CELL,UR FEW Squamous (<= Few); WBC,URINE 0-3 /HPF (0-3)
[2022-06-29 12:55] LABS: BACTERIA,URINE Few /HPF (None Seen)
[2022-06-29] MEDS ORDERED: TAMSULOSIN 0.4 MG CAPSULE PO STA (12:56)
[2022-06-29 13:10] LABS: ALBUMIN 4.4 g/dL (3.2-5.5); ALBUMIN/GLOBULIN RATIO 1.7 (1.0-2.2); BILIRUBIN,TOTAL 0.7 mg/dL (0.2-1.0); CALCIUM 10.4 mg/dL (8.5-10.3); CREATININE 0.9 mg/dL (0.6-1.2); POTASSIUM 3.8 mmol/L (3.5-5.0)
== END 2022-06-29 13:59 | disposition home or self-care (01) ==
LOC: EDUNIT# → ED 11:54
DX: N13.2 Hydronephrosis with renal and ureteral calculous obstruction (principal); F03.90 Unspecified dementia, unspecified severity, without behavioral disturbance, psychotic disturbance, mood disturbance, and anxiety
CPT/HCPCS: 36415; 74176; 80053; 81001; 83690; 85025; 99284; A9270; 81003; 87086

== ENCOUNTER → 2022-06-29 | Outpatient (CLI) | payer MEDICARE, OTHER | END | disposition critical access hospital (66) | LOC: EMS 11:30 | DX: R10.31 Right lower quadrant pain (principal) | CPT/HCPCS: A0425; A0429 ==

== ENCOUNTER 2022-10-16 14:18 | Outpatient (CLI) | payer MEDICARE, OTHER ==
--- NOTE | 2022-10-16 16:28 | Ultrasound Report ---
PROCEDURE: Retroperitoneal INDICATIONS: RIGHT URETERAL CALCULUS TECHNIQUE: Real-time scanning was performed of the retroperitoneal organs, with image documentation. COMPARISON: CT dated 06/29/2022 FINDINGS: Kidneys: Kidneys are normal in size. Right kidney measures 9.5 cm long; left kidney measures 12.5 c m long. Right renal cortical thickness is 0.9 cm; left renal cortical thickness is 1.4 cm. No solid masses. Mild left hydronephrosis. Proximal left ureter is dilated to 12 mm.. Right superior pole sim ple cyst measuring 7 cm is unchanged. Left superior parapelvic cyst measuring 7.6 cm is increased in size. Bladder: Pre-void bladder volume is 89 mL. Post-void residual is 8 mL. Pre-void images demonstrate no intraluminal masses or stones. Right ureteral jet is not seen. Left ureteral jet is seen. Prostat e is enlarged measuring 64 mm. Miscellaneous: No free abdominal fluid. IMPRESSION: 1. Mild left hydronephrosis. 2. Bilateral renal cysts. 3. Enlarged prostate. Recommend correlation with PSA values. Reviewed by: Samantha Contreras MD on 10/16/2022 4:26 PM PST Approved by: Samantha Contreras MD on 10/16/2022 4:26 PM PST Station ID: [id number]
== END 2022-10-16 14:19 | disposition home or self-care (01) ==
LOC: DI 14:18
PROVIDERS: ATTEND Urology
DX: N13.2 Hydronephrosis with renal and ureteral calculous obstruction (principal); N28.1 Cyst of kidney, acquired; N40.0 Benign prostatic hyperplasia without lower urinary tract symptoms